=== PATIENT | female | born 1980 | race Caucasian/White ===

== ENCOUNTER → 2020-11-16 16:16 | Outpatient (CLI) | payer BC, SELFPAY ==
--- NOTE | ~2020-11-16 | XR_ITS ---
EXAMINATION: XR scapula LT INDICATION: Left scapular pain TECHNIQUE: Two views of the left scapula are obtained. COMPARISON: None available FINDINGS: Bone alignment is normal. There is no fracture. The soft tissues are unremarkable. IMPRESSION: 1. No acute osseous abnormality. Reviewed, dictated and finalized at location A. 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
--- NOTE | ~2020-11-16 | XR_ITS ---
EXAMINATION: XR chest 2V DATE: 11/16/2020 17:06 INDICATION: Left chest pain TECHNIQUE: PA and lateral views of the chest are obtained. COMPARISON: 09/03/2019 FINDINGS: The lungs are free of acute opacities. There is no pleural effusion or pneumothorax. The ca rdiomediastinal silhouette is normal. The visualized bones and soft tissues are unremarkable. IMPRESSION: 1. No acute cardiopulmonary abnormality. Reviewed, dictated and finalized at location A. RAL HOME LOCATION MANAGER
--- NOTE | ~2020-11-16 | MM_ITS ---
EXAMINATION: MM screening jay BI w jerri HISTORY: Screening TECHNIQUE: Craniocaudal and mediolateral oblique 3-D tomosynthesis images were obtained and synthetic 2-D images were generated. CAD analysis was submitted and interpreted. COMPARISON: No prior mammogram is available for comparison at this institution. BREAST PARENCHYMAL COMPOSITION: There are scattered areas of fibroglandular density. FINDINGS: There is a small 3 mm mass lower inner quadrant of the left breast, anterior third. There a re no suspicious masses, calcifications or architectural distortion in the right breast to suggest ma lignancy. IMPRESSION: 1. Left breast mass, lower inner quadrant anteriorly measuring 3 mm. 2. Additional mammographic views and possible breast ultrasound are recommended. BI-RADS Category 0: Incomplete: Needs additional imaging evaluation. Reviewed, dictated and finalized at location A. ERY SUPERVISOR IMPRESSION: 1. Left breast mass, lower inner quadrant anteriorly measuring 3 mm. 2. Additional mammographic views and possible breast ultrasound are recommended . BI-RADS Category 0: Incomplete: Needs additional imaging evaluation.
== END ==
PROVIDERS: PCP Internal Medicine; Visit Provider Internal Medicine
DX: Z12.31 Encounter for screening mammogram for malignant neoplasm of breast (principal); M25.512 Pain in left shoulder; R92.8 Other abnormal and inconclusive findings on diagnostic imaging of breast
CPT/HCPCS: 71046; 73010; 77063; 77067

== ENCOUNTER → 2020-12-15 09:25 | Outpatient (CLI) | payer BC, SELFPAY ==
--- NOTE | ~2020-12-15 | MMUS_ITS ---
EXAMINATION: MM diagnostic mammo unilat LT, US breast LT limited HISTORY: Left breast mass on baseline screening mammogram TECHNIQUE: Additional 3-D tomosynthesis images of the left breast were performed and synthetic 2-D im ages were generated. CAD analysis was submitted and interpreted. High resolution limited left breast ultrasound was performed. COMPARISON: 11/16/2020 FINDINGS: MAMMOGRAPHIC FINDINGS: There is a 4 mm oval, circumscribed, equal density mass in the anterior third of the slightly inner b reast at the 7:00 location 3 cm from the nipple. ULTRASOUND: There is a 3 mm oval, circumscribed, parallel, hypoechoic mass with no posterior features or internal vascularity at the 7:00 location 2 cm from the nipple. IMPRESSION: 1. Probably benign left breast mass. 2. Recommend 6 month follow-up left diagnostic mammogram and ultrasound. BI-RADS category 3, probably benign findings. Reviewed, dictated and finalized at location A. IMPRESSION: 1. Probably benign left breast mass. 2. Recommend 6 month follow-up left diagnostic mammogram and ultrasound. BI-RADS category 3, probably benign findings.
== END ==
PROVIDERS: PCP Internal Medicine; Visit Provider Internal Medicine
DX: R92.8 Other abnormal and inconclusive findings on diagnostic imaging of breast (principal)
CPT/HCPCS: 76642; 77065

== ENCOUNTER → 2020-12-18 12:38 | Outpatient (CLI) | payer BC, SELFPAY ==
--- NOTE | ~2020-12-18 | CT_ITS ---
EXAMINATION: CT abdomen pelvis wo con DATE: 12/18/2020 13:03 INDICATION: Nephrolithiasis presenting with right lower quadrant abdominal pain and hematuria. TECHNIQUE: Computed tomography (CT) of the abdomen and pelvis was performed without intravenous contr ast. Automated exposure control and iterative reconstruction technique were employed. The dose-length product was 640.95 mGy-cm. COMPARISON: 08/18/2018 FINDINGS: Lung bases are clear. Heart size is normal. No pericardial or pleural effusion. There are few calcifi ed gallstones in the fundus of the normal-appearing gallbladder. Liver, spleen, pancreas and bilatera l adrenal glands are normal. 1-2 mm stone at the right ureterovesicular junction without hydronephros is. Additional 1 mm stone at the lower pole of the right kidney. No right-sided urolithiasis. No hydr onephrosis. A few phleboliths in the pelvis. Bladder is normal. 1.8 cm right adnexal cyst. Anteverted uterus and left adnexa are unremarkable. Bowels including the appendix are normal. Very small fat-co ntaining umbilical hernia. No free intraperitoneal gas or fluid. No pathologically enlarged abdominal or pelvic lymphadenopathy. Prominent bone island at the posterior medial left acetabulum. IMPRESSION: 1. Right nephrolithiasis with 1-2 mm nonobstructing stone at the right ureterovesicular junction with no hydroureteronephrosis. 2. Cholelithiasis. Reviewed, dictated and finalized at location B. IMPRESSION: 1. Right nephrolithiasis with 1-2 mm nonobstructing stone at the right ureterov esicular junction with no hydroureteronephrosis. 2. Cholelithiasis.
== END ==
PROVIDERS: PCP Internal Medicine; Visit Provider Internal Medicine
DX: R10.31 Right lower quadrant pain (principal); R31.9 Hematuria, unspecified; N20.0 Calculus of kidney; K80.20 Calculus of gallbladder without cholecystitis without obstruction
CPT/HCPCS: 74176

== ENCOUNTER → 2021-11-20 09:47 | Outpatient (CLI) | payer OTHER, SELFPAY ==
--- NOTE | ~2021-11-20 | MMUS_ITS ---
EXAMINATION: MM diagnostic jay BI w jerri, US breast LT limited HISTORY: Follow-up left breast mass TECHNIQUE: Additional 3-D tomosynthesis images of the breasts were performed and synthetic 2-D images were generated. CAD analysis was submitted and interpreted. High resolution Limited left breast ultr asound was performed. COMPARISON: Comparison to multiple prior studies sequentially, with oldest reviewed study dated 12/2020. BREAST PARENCHYMAL COMPOSITION: Breast composed of scattered areas of fibroglandular density. FINDINGS: MAMMOGRAPHIC FINDINGS: There are no suspicious masses, calcifications or architectural distortion in either breast to sugges t malignancy. Decreased size of small mass in the lower inner quadrant of the left breast compared wi th prior examination. ULTRASOUND: Limited left breast ultrasound: At 7:00, 2 cm from the nipple, decreased size to 2 mm complicated cys t compared with prior examination. No suspicious masses or cyst to suggest malignancy. IMPRESSION: 1. Diminished size of complicated cyst compared with prior examination which has a benign appearance. No evidence for malignancy in either breast. 2. Routine yearly screening mammogram and regular clinical breast examination are recommended. BI-RADS Category 2: Benign finding(s). Reviewed, dictated and finalized at location A. 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 Diminished size of complicated cyst compared with prior examination which bradley s a benign appearance. No evidence for malignancy in either breast. 2. Routine yearly screening mammogram and regular clinical breast examination a re recommended. BI-RADS Category 2: Benign finding(s).
== END ==
PROVIDERS: PCP Internal Medicine; Visit Provider Internal Medicine
DX: R92.8 Other abnormal and inconclusive findings on diagnostic imaging of breast (principal)
CPT/HCPCS: 76642; 77062; 77066; G0279

== ENCOUNTER 2022-08-06 11:32 | Outpatient (CLI) | payer OTHER, SELFPAY ==
[2022-08-06 12:49] LABS: Influenza Control Valid (Valid)
== END 2022-08-06 11:33 | disposition home or self-care (01) ==
LOC: CHSLAB 11:37
PROVIDERS: PCP Internal Medicine; Visit Provider Internal Medicine
DX: J06.9 Acute upper respiratory infection, unspecified (principal)
CPT/HCPCS: 87804

== ENCOUNTER 2023-05-13 11:26 | Emergency (ER) | payer OTHER, SELFPAY ==
[2023-05-13] VITALS (8 sets, daily range): BP systolic 103–152; BP diastolic 83–118; PULSE 58–70; RESP 17–18; TEMP 36.2–36.6; O2SAT 96–100
--- NOTE | ~2023-05-13 | US_ITS ---
US right upper quadrant DATE: 05/13/2023 12:13 INDICATION: Right upper quadrant abdominal pain. History of gallstones. TECHNIQUE: Real-time imaging and Doppler analysis at right upper quadrant COMPARISON: December 18, 2020 CT abdomen pelvis FINDINGS: Normal hepatopedal portal venous flow direction. No hepatic or pancreatic space-occupying m ass lesion is detected. There are multiple gallstones including 2 up to approximately 11 x 17 mm stones fixed in position at the neck of the gallbladder. No gallbladder wall thickening is noted. No abnormal pericholecystic flu id collection. Positive sonographic Sandra's sign. Common bile duct measures 6 mm, borderline. IMPRESSION: Cholelithiasis Positive sonographic Sandra's sign and fixed stones at gallbladder neck, suggesting possibility of ac matthew cholecystitis Borderline 6 mm diameter of common bile duct Reviewed, dictated and finalized at Location A. Reviewed, dictated and finalized at location L. IMPRESSION: Cholelithiasis Positive sonographic Sandra's sign and fixed stones at gallbladder neck, sugges ting possibility of acute cholecystitis Borderline 6 mm diameter of common bile duct
--- NOTE | 2023-05-13 11:29 | ED.ABDPAIN ---
HPI - Abdominal Pain General Chief Complaint: Abdominal Pain Stated Complaint: abdominal pain Time Seen by Provider: 05/13/23 11:29 Source: patient and RN notes reviewed Mode of arrival: ambulatory Limitations: no limitations History of Present Illness MD elicited complaint: abdominal pain Pertinent past history: none Onset (ago): hour(s) (2.5) Pain Consistency: constant Location: RUQ Severity: moderate Quality: stabbing and sharp Radiation: none Migration to: no migration Exacerbating factors: eating Relieving factors: nothing Associated symptoms: denies other symptoms Related Data Home Medications Medication Instructions Recorded Confirmed No Home Medications 05/13/23 05/13/23 Allergies Allergy/AdvReac Type Severity Reaction Status Date / Time cefadroxil Allergy Unknown NAUSEA AND Verified 05/13/23 11:32 VOMITING PMFSH Past Medical History Medical History (Updated 05/13/23 @ 12:37 by Spenser Hanson MD) No active medical problems Surgical History Surgical History (Updated 05/13/23 @ 11:37 by Spenser Hanson MD) History of section x2 Exam Const: General: no acute distress, alert and ill appearing acutely Nutritional Appearance: well nourished and obese Orientation/consciousness: patient oriented x3 Limitations: no limitations Other: female tech in room during examination. HENMT: Head: normal to inspection Ears: external ears normal Face/Nose/Sinus: Normal external nose present Face and sinus: normal facial exam Mouth: Yes moist mucous membranes Eyes: Conjunctivae: conjunctivae normal Pupils: Equal, round and reactive pupils present EOM: EOMs intact bilaterally Neck: Neck: normal visual inspection Resp: Effort & Inspection: normal respiratory effort Auscultation: clear to auscultation bilaterally Cardio: Rate: regular rate Rhythm: regular rhythm GI: GI Palp: Yes Soft to palpation, Yes Tenderness to palpation present (GI) ( Severe right upper quadrant positive Sandra sign), Yes Guarding due to palpation present (GI) ( moderate RUQ) and No Rebound tenderness present Auscultation: normal bowel sounds Back/Spine/Pelvis: Cervical Spine: cervical ROM normal Thoracic/Lumbar Spine: thoraco-lumbar ROM normal Skin: General skin exam: normal color Rashes: no rashes Neuro: General: patient oriented x3, moves all extremities, no focal motor deficits and CN's II-XI intact bilaterally Speech: normal speech Gait exam (Neuro): Normal gait present Extrem: General: normal to inspection and no clubbing, cyanosis or edema Psych: Mental Status: mental status grossly normal Affect: normal affect Attitude: cooperative Course Course Emergency Course: patient given Bentyl which did not really help with her pain. She also asked for some Zofran and then helped with her nausea. Patient was offered IV and IV Dilaudid which she refused because she wants to go by private vehicle to [facility]. Consultations Consultation #1: Dr. Smith accepted the patient for transfer to [facility]. Date: 05/13/23 Vital Signs Vital signs: Vital Signs Temperature 36.2 C L 05/13/23 11:26 Pulse Rate 70 05/13/23 11:26 Respiratory Rate 18 05/13/23 11:26 Blood Pressure 139/107 H 05/13/23 11:26 Pulse Oximetry 96 05/13/23 11:26 Oxygen Delivery Room Air 05/13/23 11:26 Temperature 36.2 C L 05/13/23 11:26 Pulse Rate 65 05/13/23 11:45 Respiratory Rate 18 05/13/23 11:45 Blood Pressure 152/93 H 05/13/23 11:45 Pulse Oximetry 98 05/13/23 11:45 Oxygen Delivery Room Air 05/13/23 11:45 Transfer Transfered to: [facility] Transfer rationale: Surgical specialty Accepting physician: Dr. Smith MDM - Abdominal Pain Differential Diagnosis Differential diagnosis: Likely abdominal pain, acute appendicitis, constipation, diverticulitis, small bowel obstruction and other ( cholelithiasis cholecystitis) Lab Data Attestation: I reviewed the marian
[2023-05-13 11:49] LABS: Basophils Absolute Auto 0.05 K/mm3 (0.00-0.10); Basophils Percent Auto 0.5 % (0.0-1.0); Eosinophils Absolute Auto 0.11 K/mm3 (0.02-0.50); Hematocrit 43.1 % (35.0-49.0); Hemoglobin 14.4 g/dL (12.0-15.0); Immature Granulocyte Absolute 0.03 K/mm3 (0.00-0.00); Immature Granulocyte Percent A 0.3 % (0.0-0.0); Lymphocytes Absolute Auto 2.48 K/mm3 (1.10-4.50); Lymphocytes Percent Auto 22.4 % (18.0-42.0); Mean Corpuscular HGB Conc 33.4 g/dL (32.0-36.0); Mean Corpuscular Hemoglobin 32.1 pg (27.0-31.0); Mean Platelet Volume 10.3 fl (9.2-11.8); Monocytes Absolute Auto 0.63 K/mm3 (0.10-0.90); Monocytes Percent Auto 5.7 % (2.0-11.0); Neutrophils Absolute Auto 7.8 K/mm3 (1.7-7.2); Neutrophils Percent Auto 70.1 % (50.0-70.0); Platelet Count Result 288 K/mm3 (150-420); Red Blood Count 4.49 M/mm3 (4.20-5.40); Red Cell Distribution Width 12.6 % (11.6-14.4); White Blood Count 11.1 K/mm3 (4.8-10.8)
[2023-05-13 12:00] LABS: CRP 1.1 mg/dL (0.0-0.9)
[2023-05-13 12:05] LABS: Alanine Aminotransferase 19 U/L (14-59); Albumin Level 3.4 g/dL (3.4-5.0); Anion Gap 7 mmol/L (8-16); Aspartate Amino Transferase 13 U/L (15-37); Bilirubin,Total 0.2 mg/dL (0.00-1.00); Blood Urea Nitrogen 13 mg/dL (7-18); Calcium 8.7 mg/dL (8.5-10.1); Carbon Dioxide 27 mmol/L (21-32); Chloride 105 mmol/L (98-108); Estimated CRCL calculation 83 ml/min; Estimated Glomerular Filt Rate > 60; Glucose 107 mg/dL (70-99); Osmolality Calculated 288 mOsm/kg (285-295); Potassium 3.8 mmol/L (3.5-5.1); Sodium 139 mmol/L (136-145)
[2023-05-13 12:06] LABS: Alkaline Phosphatase 86 U/L (46-116); Amylase 44 U/L (25-115); Lipase 56 U/L (16-77)
[2023-05-13] MEDS: ONDANSETRON HCL ODT 4 MG TABLET PO ×2 (12:10→13:48)
[2023-05-13] MEDS: DICYCLOMINE HCL INJ 20 MG/2 ML VIAL IM (12:11)
--- NOTE | 2023-05-13 12:51 | PC.NURSE ---
RN went down to give patient Dilaudid and start IV, patient states that she does not want IV because she wants to transfer VIA POV. patient informed that i may be some time before surgeon calls back and that she cannot have Dilaudid and go POV for transfer. she understands and verbalized she does not want pain medication or IV at this time.
== END 2023-05-13 13:52 | disposition short-term general hospital (02) ==
PROVIDERS: Emergency Provider Emergency Medicine; PCP Internal Medicine
DX: K81.0 Acute cholecystitis (principal)
CPT/HCPCS: 36415; 76705; 80053; 82150; 83605; 83690; 85025; 86140; 96372; 99284; A9270; J0500

== ENCOUNTER 2023-05-13 15:15 | Observation (INO) | payer OTHER, SELFPAY ==
--- NOTE | 2023-05-13 15:39 | PM.IMHP ---
H&P: HPI History of Present Illness Date/Time: 05/13/23 15:39 Chief Complaint: RUQ abdominal pain Narrative: This is a 43 year old woman who came into [place] ER today with RUQ abdominal pain. She had Ramen noodles this morning around 8:00 am and about 30 minutes after had a sudden onset of RUQ abdominal pain. Her pain radiates across her upper abdomen and into her mid back. She has associated nausea and vomiting. In [place], labs showed WBC count 11,100 and normal LFTs. RUQ US showed positive Sandra's sign and fixed stones in the neck of the gallbladder with borderline 6 mm diameter of common bile duct. She was directly admitted to [facility] for surgical evaluation. She is now seen on the medical floor. Review of Systems Review of Systems: All systems reviewed & are unremarkable except as noted in HPI and below Constitutional: Constitutional: Reports no additional constitutional complaints, Denies chills, Denies fatigue and Denies fever(s) Eyes: Eyes: Reports no additional eye complaints ENT: Reports system reviewed and no additional complaints, except as documented and Denies dizziness Cardiovascular: Cardiovascular: Reports no additional cardiovascular complaints, Denies chest pain and Denies leg edema Respiratory: Respiratory: Reports no additional respiratory complaints, Denies cough and Denies dyspnea Gastrointestinal: Gastrointestinal: Reports as per HPI, Reports no additional gastrointestinal complaints, Reports abdominal pain, Denies melena, Denies hematochezia, Denies constipation, Denies diarrhea, Reports nausea and Reports vomiting Genitourinary: Genitourinary: Reports no additional female genitourinary complaints and Denies dysuria Musculoskeletal: Musculoskeletal: Reports no additional musculoskeletal complaints, Denies abnormal gait and Denies joint swelling Integumentary/Breasts: Skin/Breast: Reports system reviewed and no additional complaints, except as docu and Denies jaundice Neurologic: Reports system reviewed and no additional complaints, except as documented, Denies headache(s), Denies focal weakness, Denies numbness and Denies tingling PMFSH Past Medical History Medical History No active medical problems Surgical History Surgical History History of section x2 Social History Social History Living arrangements: with family 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 Home Medications and Allergies Home Medications Medication Instructions Recorded Confirmed Type No Home Medications 05/13/23 05/13/23 History Allergies Allergy/AdvReac Type Severity Reaction Status Date / Time cefadroxil Allergy Unknown NAUSEA AND Verified 05/13/23 11:32 VOMITING Exam Const: General: no acute distress, awake and uncomfortable Nutritional Appearance: overweight Orientation/consciousness: patient oriented x3 HENMT: Head: normocephalic and atraumatic Ears: hearing grossly normal bilaterally Mouth: Yes moist mucous membranes Eyes: General: appearance normal, both eyes and all related structures Pupils: Equal, round and reactive pupils present EOM: EOMs intact bilaterally Neck: Neck: normal visual inspection and full ROM Resp: Effort & Inspection: no respiratory distress Auscultation: clear to auscultation bilaterally Cardio: Rate: regular rate Rhythm: regular rhythm Heart sounds: S1 normal heart sound present and S2 normal heart sound present Peripheral pulses: Peripheral pulses 2+ throughout GI: Inspection: non-distended GI Palp: Yes Soft to palpation, Yes Tenderness to palpation present (GI) (epigastric and RUQ, most focally in RUQ), Yes Guarding due to palpation present (GI) (RUQ), Yes No hepatosplenomegaly present and No Rebound tenderness present Auscultation: normal bow
[2023-05-13] MEDS: MORPHINE SULFATE (*CRX) 2 MG/ML INJ IV PUSH ×3 (15:40→21:25)
[2023-05-13] MEDS: LACTATED RINGERS 1,000 ML 100 ML IV CONT (15:42)
[2023-05-13] MEDS: ONDANSETRON INJ 4 MG/2 ML VIAL IV PUSH (15:46)
[2023-05-13 15:49] VITALS: BP 137/80; PULSE 53; RESP 14; TEMP 35.7; O2SAT 100
[2023-05-13 15:59] VITALS: BMI 38.3
--- NOTE | 2023-05-13 16:07 | ADMGEN ---
This patient, Ameena Mcfarland, was admitted to [facility] Surg Room 312-01. Patient/family oriented to hospital policies and general routines including ID bracelet, bed and alarms, visiting hours, pain management, procedures, bathroom and other care routines, personal items, smoking policy, room service/diet, and visiting hours. Information on how to activate the Rapid Response Team has been discussed. Patient/Family are encouraged to report perceived risks to care and to ask questions if they do not understand what they are told or what they should do. Direct admit from [facility].
[2023-05-13 20:50] VITALS: O2SAT 96
[2023-05-13 21:15] VITALS: BP 118/78; PULSE 54; RESP 18; TEMP 35.6; O2SAT 96
[2023-05-14] VITALS (13 sets, daily range): BP systolic 105–131; BP diastolic 57–78; PULSE 52–78; RESP 14–19; TEMP 35.6–36.5; O2SAT 93–100
[2023-05-14] MEDS: MORPHINE SULFATE (*CRX) 2 MG/ML INJ IV PUSH ×2 (02:14→06:30)
[2023-05-14] MEDS: LACTATED RINGERS 1,000 ML 100 ML IV CONT (02:16)
[2023-05-14 06:54] LABS: Hematocrit 42.2 % (37.0-47.0); Mean Corpuscular HGB Conc 33.2 g/dl (32-36); Mean Corpuscular Hemoglobin 31.9 pg (26-34); Mean Corpuscular Volume 96.1 fl (80-100); Mean Platelet Volume 9.8 fl (7.4-10.4); Platelet Count Result 281 k/mm3 (150-375); Red Blood Count 4.39 M/mm3 (4.2-5.4); Red Cell Distribution Width 12.9 % (11.5-14.5); White Blood Count 13.1 K/mm3 (4.5-10.0)
[2023-05-14 07:10] LABS: Alanine Aminotransferase 21 U/L (6-35); Albumin Level 3.7 g/dL (3.5-5.1); Alkaline Phosphatase 73 U/L (38-126); Anion Gap 6 mmol/L (8-16); Aspartate Amino Transferase 23 U/L (14-36); Bilirubin,Total 0.6 mg/dL (0.2-1.3); Blood Urea Nitrogen 9 mg/dL (7-17); Calcium 8.7 mg/dL (8.4-10.2); Carbon Dioxide 27 mmol/L (22-30); Chloride 106 mmol/L (98-107); Estimated CRCL calculation 96 ml/min; Estimated Glomerular Filt Rate > 60; Glucose 100 mg/dL (65-110); Lipase 106 U/L (23-300); Potassium 3.9 mmol/L (3.4-5.0); Sodium 139 mmol/L (137-145)
--- NOTE | 2023-05-14 07:14 | WPDHPUPDATE1 ---
History and Physical Update Update Date/Time: 05/14/23 07:14 History and Physical has been reviewed, including an updated exam of the patient. There are NO changes in the patient's condition. Risks, benefits, and alternatives have been discussed and questions answered. Patient agrees to proceed with procedure.
[2023-05-14] MEDS: ONDANSETRON INJ 4 MG/2 ML VIAL IV PUSH ×2 (07:55→13:38)
--- NOTE | 2023-05-14 08:46 | WPDANESEPPF ---
Anes - Initial Pre Proc Eval Procedure: Operation Date: 05/14/23 09:30 Proposed Procedures p Laparoscopic Cholecystectomy, Possible Open - Charly Smith DO Date/Time: 05/14/23 08:46 Surgeon: Charly Smith DO Pre Op Diagnosis: Acute Cholecystitis Patient Data Age: 43 Gender: F Height: 1.57 m Weight: 95.1 kg Last Vital Signs Temp 36.1 C L 05/14/23 06:00 Pulse 65 05/14/23 06:00 Resp 16 05/14/23 06:00 BP 109/57 L 05/14/23 06:00 Pulse Ox 98 05/14/23 06:00 O2 Del Method Room Air 05/13/23 20:50 Allergies Allergy/AdvReac Type Severity Reaction Status Date / Time cefadroxil Allergy Unknown NAUSEA AND Verified 05/13/23 16:19 VOMITING Home Medications Medication Instructions Recorded Confirmed Type No Home Medications 05/13/23 05/13/23 History Laboratory Tests 05/14/23 06:47 WBC 13.1 H K/mm3 (4.5-10.0) RBC 4.39 M/mm3 (4.2-5.4) Hgb 14.0 g/dL (12.0-15.0) Hct 42.2 % (37.0-47.0) MCV 96.1 fl (80-100) MCH 31.9 pg (26-34) MCHC 33.2 g/dl (32-36) RDW 12.9 % (11.5-14.5) Plt Count 281 k/mm3 (150-375) MPV 9.8 fl (7.4-10.4) Sodium 139 mmol/L (137-145) Potassium 3.9 mmol/L (3.4-5.0) Chloride 106 mmol/L (98-107) Carbon Dioxide 27 mmol/L (22-30) Anion Gap 6 L mmol/L (8-16) BUN 9 mg/dL (7-17) Creatinine 0.70 mg/dL (0.7-1.0) Estim Creat Clear Calc 96 ml/min Estimated GFR > 60 (59 - ) Glucose 100 mg/dL (65-110) Calcium 8.7 mg/dL (8.4-10.2) Total Bilirubin 0.6 mg/dL (0.2-1.3) AST 23 U/L (14-36) ALT 21 U/L (6-35) Alkaline Phosphatase 73 U/L (38-126) Total Protein 7.0 g/dL (6.3-8.2) Albumin 3.7 g/dL (3.5-5.1) Lipase 106 U/L (23-300) Patient hx anesthesia problems: none Family hx anesthesia problems: none Results Review: All pre-operative results and documents have been reviewed as part of the pre-operative evaluation. [facility] Past Medical History Medical History No active medical problems Surgical History Surgical History History of section x2 Social History Social History (Updated 05/14/23 @ 08:56 by Hector Antoine, ) Smoking packs per day: 1 Smoking cigarettes per day: 20.0 Smoking status: Current every day smoker Alcohol intake: current Drinks per week: 1 Substance use: former Substance use type: marijuana Last use: 02/10/23 Lack of Transportation: No Lack of Food: Never True Current Housing: I Have Housing Concerned About Future Housing: No Difficulty Paying Gas/Electric Bills: No Difficulty Paying for Meds: No Currently Unemployed: No Education: High School Diploma/GED Difficulty w/ Childcare or Family Care: No Living arrangements: with family 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 Informed Consent: The patient's anesthetic plan and its attendant risks and benefits were discussed with the patient/family/POA. Questions were solicited and answers provided to the satisfaction of the patient/family/POA.
[2023-05-14 08:59] LABS: SPREG INTERNAL CONTROL Positive; Serum Qual hCG Negative
[2023-05-14] MEDS: ceFAZolin 2 GM/D5W 50 ML 2 GM/50 ML BAG IVPB (09:30)
[2023-05-14] MEDS: BUPIVACAINE/EPINEPHRINE 0.5% 50 ML VIAL 30 ML INFILTRATE (09:33)
[2023-05-14] MEDS: LACTATED RINGERS 1,000 ML 30 ML IV CONT ×2 (10:04→10:22)
--- NOTE | 2023-05-14 10:14 | W.PM.PROC2 ---
Procedure Note - Detailed Date of Procedure 05/14/23 Pre-op Diagnosis Acute Cholecystitis Post-op Diagnosis Same Procedure Performed Laparoscopic cholecystectomy Surgeon Charly Smith, DO Anesthesia General and Local (0.5% bupivacaine) Indications This is a 43-year-old woman who presented to [facility] with right upper quadrant pain with nausea and vomiting. She was found to have evidence of acute calculous cholecystitis on ultrasound and her white blood count was slightly elevated. She was transferred to [facility] for further treatment. Discussions were made with the patient about treatment options and decision was made to proceed with laparoscopic cholecystectomy, possible open. Findings Laparoscopic cholecystectomy was performed. The gallbladder was edematous and dilated. The cystic duct appeared normal in size. There were several medium-sized stones within the gallbladder. The gallbladder was removed and sent to the lab for pathology. Description of Procedure Procedure as well as risks, benefits, and alternatives were discussed with patient. Written consent was obtained and placed in chart prior to procedure. The patient was brought back to surgical suite. Patient was placed in supine position on operating table. Time-out was done to confirm patient and procedure. Patient was then intubated by the anesthesia department. Abdomen was prepped and draped in sterile fashion using chlorhexidine prep. 0.5% bupivacaine with epinephrine was infiltrated at each site of incision. A 5 millimeter incision was made near the umbilicus, and a 5 millimeter Optiview trocar was advanced through the abdominal layers under direct visualization. Once inside the abdominal cavity, carbon dioxide was insufflated to create a pneumoperitoneum. The camera was inserted and the abdomen was inspected. No immediate abnormalities were identified. The patient was placed in reverse Trendelenburg position and rotated slightly to the left. An 11 millimeter incision was made in the subxiphoid region, and an 11 millimeter trocar was inserted under direct visualization. Two 5 millimeter incisions were made in the right upper quadrant, and two 5 millimeter trocars were inserted under direct visualization. The gallbladder was identified and grasped at the fundus and retracted superiorly. It was then grasped at the infundibulum retracted laterally. Careful dissection around the neck of the gallbladder was performed using blunt dissection with a [place] grasper and hook electrocautery. The cystic duct was identified, and a window was created behind it. The cystic artery was also identified and a window was created behind it. The critical view of safety was identified, visualizing the cystic duct running directly into the neck of the gallbladder, and the cystic artery running directly into the wall of the gallbladder. A 5 millimeter clip fashion illustrator was then used to place 2 clips proximally and 1 clip distally on both the cystic duct and cystic artery. They were then both transected using endoscopic scissors. Once safely away from the kaila hepatitis, the gallbladder was dissected free from the liver bed using hook electrocautery. Hemostasis was achieved along the way. The gallbladder was removed completely and then removed through the subxiphoid port. The liver bed was then inspected. Hemostasis appeared adequate, and our clips appeared secure. The area was gently irrigated with sterile saline. No other abnormalities were seen. The patient was flattened out in bed, and 1 final inspection was made around the abdominal cavity. The subxiphoid port was removed, and a Elmo Radha cone was used to approximate the fascia with an 0-Vicryl simple interrupted suture. The remaining ports were then removed under direct visualization, the camera was removed, and the pneumoperitoneum was released. The skin of the incisions was approximated using 4-0 Monocryl s
[2023-05-14] MEDS: fentaNYL CITRATE INJ (*CRX) 100 MCG/2 ML VIAL 25 MCG IV PUSH ×8 (10:18→11:13)
--- NOTE | 2023-05-14 10:20 | PM.DS ---
DS: Admitting Diagnosis Discharge Date 05/14/2023 Admitting Diagnosis Acute calculous cholecystitis DS: Discharge Diagnosis Discharge Diagnosis (1) Acute calculous cholecystitis: Code(s): K80.00 - Calculus of gallbladder with acute cholecystitis without obstruction Status: Acute DS: Summary Hospital Course Reason for hospitalization: Acute calculous cholecystitis Hospital Course: This is a 43-year-old woman who presented to [facility] emergency department for right upper quadrant pain and nausea and vomiting that started yesterday morning. She was found to have evidence of acute calculous cholecystitis on ultrasound and was noted to have a slightly elevated white blood count. She was continuing to have persistent pain. She was transferred to [facility] for further treatment. She underwent laparoscopic cholecystectomy on 05/14/2023. Surgery was uncomplicated and she was returned to the surgical floor postoperatively. Diet and activity were advanced as tolerated. She was discharged home once she was tolerating a low-fat diet, vitals remained stable, her pain was controlled, and she was ambulating in the halls. Time spent discussing smoking cessation with patient: 3 to 10 minutes Status at Discharge Functional status at discharge: independent ambulation Overall status at discharge: patient is progressing back to baseline Time Spent with Patient Time attestation: Total time spent providing and/or coordinating discharge services: Exam GI: Inspection: non-distended and incision (Intact with glue) DS: Data Data Completed and Pending Pending studies at discharge: Pending at discharge 05/14/23 09:34 Surgical [PTH] Routine Labs on day of discharge: Labs from last 24 hours 05/14/23 06:47 WBC 13.1 H RBC 4.39 Hgb 14.0 Hct 42.2 MCV 96.1 MCH 31.9 MCHC 33.2 RDW 12.9 Plt Count 281 MPV 9.8 Sodium 139 Potassium 3.9 Chloride 106 Carbon Dioxide 27 Anion Gap 6 L BUN 9 Creatinine 0.70 Estim Creat Clear Calc 96 Estimated GFR > 60 Glucose 100 Calcium 8.7 Total Bilirubin 0.6 AST 23 ALT 21 Alkaline Phosphatase 73 Total Protein 7.0 Albumin 3.7 Lipase 106 Serum HCG, Qual Negative Discharge Plan Discharge Attending physician on discharge: Charly Marshall Discharging Clinician: Charly Marshall Patient Disposition: Home, Self-Care Activity: other - see discharge instructions Diet: low fat Wound Care Instructions: other - see discharge instructions Discharge Instructions: DISCHARGE INSTRUCTION SHEET FOR HERNIA, GALLBLADDER AND APPENDIX SURGERIES DR. MARSHALL PATIENT TO TAKE HOME 1. May shower in 24 hours, no soaking in bath x 2weeks. 2. Call office for: Wound increasingly painful or bleeding Vomiting Fever of greater than 101 degrees 3. If no bowel movement for three days, take 1 oz. (30 ml) Milk of Magnesia or MiraLax 17g 1 to 2 times daily. 4. No heavy lifting > 10-15 pounds x weeks for hernia repairs and 2 weeks for laparoscopic cholecystectomy or appendectomy. 5. No driving for 3 days or while taking narcotic pain medications. 6. Ice to surgical site for 48 hours (30 min on, then 30 min off). 7. Up walking 10-30 minutes three times per day. 8. Resume previous home medications. 9. Follow-up 10-14 days in office for wound check or as previously scheduled. ([phone]) 10. Oral pain medications prescription to be sent to pharmacy. Take Tylenol 500mg every 6 hours and Ibuprofen 600mg every 6 hours for the first 2 days, then as needed. 11. NUTRITION: Start out by drinking fluids and increase your diet as tolerated. If you experience nausea, try dry toast, crackers, and 7-UP. If nausea or vomiting persists, contact your surgeon?s office. 12. Gallbladders-Low Fat Diet for 2 weeks (send care note of low fat diet) 13. Inguinal Hernias-wear scrota
[2023-05-14] MEDS: IBUPROFEN 400 MG TABLET PO (15:13)
== END 2023-05-14 18:35 | disposition home or self-care (01) ==
PROVIDERS: Anesthesiology; Admitting Provider Surgery; PCP Internal Medicine; Visit Provider Surgery
PROC: 0FT44ZZ Resection of Gallbladder, Percutaneous Endoscopic Approach (ICD-10-PCS; CPT 47562; principal; 2023-05-14 09:30)
DX: K80.00 Calculus of gallbladder with acute cholecystitis without obstruction (principal); D72.829 Elevated white blood cell count, unspecified; E66.3 Overweight; Z68.38 Body mass index [BMI] 38.0-38.9, adult; F17.210 Nicotine dependence, cigarettes, uncomplicated; F10.90 Alcohol use, unspecified, uncomplicated; F12.90 Cannabis use, unspecified, uncomplicated
CPT/HCPCS: 47562; 36415; 80053; 83690; 84703; 85027; 88304; 96360; 96361; 96374; 96375; A9270; G0378; G0379; J0690; J1100; J2250; J2270; J2405; J2704; J3010; J7030; J7120

== ENCOUNTER 2025-01-31 14:40 | Outpatient (RCR) | payer OTHER, SELFPAY ==
--- NOTE | 2025-01-31 15:59 | OPREHPOC ---
Outpatient Therapy Plan of Care This is a Multidisciplinary Plan of Care that may contain components documented by all disciplines (PT, OT, and ST.) PT Problem 1 PT Problem #1 Knowledge Deficit PT Goal 1 Goal / Goal Update Independent and compliant with HEP. Target Visit 4 PT Problem 2 PT Problem #2 Pain PT Goal 1 Goal / Goal Update Pt to report no more than 3/10 neck/shoulder pain at rest. Pt to report no more than 5/10 neck/shoulder pain with activity. Target Visit 9 PT Problem 3 PT Problem #3 Impaired Strength PT Goal 1 Goal / Goal Update Pt to improve gross cervical mm strength to 5/5 without pain. Pt to improve gross R shoulder strength to 5/5 with no more than 5/10 pain with resistive testing . Target Visit 9 PT Problem 4 PT Problem #4 Impaired Functional Mobility PT Goal 1 Goal / Goal Update Pt to report 20% improvement on neck index. Pt to report 20% improvement on quick dash. Pt to report sleeping through the night for the last 3 nights without being awoken due to neck/ shoulder pain. Target Visit 9
--- NOTE | 2025-01-31 15:59 | PTOPEVAL1 ---
Assessment and note entered by Linda Rene, PT Evaluation Information Assessment Status Evaluation ICD-10 Condition Codes (PT) Pain in right shoulder M25.511 Other ICD-10 Condition Codes ( M54.2 PT) Onset 01/10/25 Subjective Information Pt reports onset of R neck and shoulder pain 3 weeks ago. She reports she went to bed feeling normal and then woke up the next day in pain. Her shoulder pain is sharp and shooting and she notes numbness in the R thumb but reports she has also felt numbness in her lateral 2 fingers. The pain is constantly present and initially went from the posterior shoulder to the elbow but now is localized to the anterior/superior shoulder. Pain radiates to the lateral arm at night and she is awoken every couple hours due to pain. She reports her neck pain is primarily in the upper trap region. 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 Reported Pain Level Pain Score 2,4: Self Report Assessment PT Clinical Summary Mrs. Mcfarland is a 44 yo female who enters the clinic with R shoulder and neck pain that occurred 3 weeks ago. Her shoulder pain is constant and sharp in nature and is reproduced with active and resisted movements of the R shoulder. Cervical tests are grossly negative for pain reproduction, however pt does exhibit impaired active cervical extension with reproduction of pain. Given the sudden onset of pt's pain she could likely be experiencing bursitis or impingement syndrome however due to significant R shoulder weakness and point tenderness, rotator cuff and labral pathologies are not excluded. She will benefit from skilled PT intervention to reduce pain, improve strength and functional use of the arm to perform daily functional tasks with less pain and difficulty. Plan of Care Interventions Electrical Stimulation,Hot Pack/Cold Pack,Manual Therapy,Neuro Re-education,Patient/Caregiver Education,Therapeutic Activities,Therapeutic Exercise,Self-Care/Home Management Other Interventions TPDN PT Services Indicated Yes Treatment Frequency and 3x/week for 9 visits Duration These treatments will address the objective and functional deficits as defined above. The patient will be advanced safely and appropriately in order for the patient to progress towards his/her prior level of function. Additional exercises will be introduced and as well as a comprehensive home exercise program upon discharge, if needed, ?to ensure carryover of functional gains achieved in the clinic. This treatment plan has been reviewed and agreement upon by the patient.
--- NOTE | 2025-02-11 14:38 | OPREHPOC ---
Outpatient Therapy Plan of Care This is a Multidisciplinary Plan of Care that may contain components documented by all disciplines (PT, OT, and ST.) PT Problem 1 PT Problem #1 Knowledge Deficit PT Goal 1 Goal / Goal Update Independent and compliant with HEP. Target Visit 4 Progress Met PT Problem 2 PT Problem #2 Pain PT Goal 1 Goal / Goal Update Pt to report no more than 3/10 neck/shoulder pain at rest. Pt to report no more than 5/10 neck/shoulder pain with activity. Target Visit 9 Progress Not Met PT Problem 3 PT Problem #3 Impaired Strength PT Goal 1 Goal / Goal Update Pt to improve gross cervical mm strength to 5/5 without pain. Pt to improve gross R shoulder strength to 5/5 with no more than 5/10 pain with resistive testing . Target Visit 9 Progress Not Met PT Problem 4 PT Problem #4 Impaired Functional Mobility PT Goal 1 Goal / Goal Update Pt to report 20% improvement on neck index. Pt to report 20% improvement on quick dash. Pt to report sleeping through the night for the last 3 nights without being awoken due to neck/ shoulder pain. -met Target Visit 9 Progress Partially Met
--- NOTE | 2025-02-11 14:38 | PTOPPROG ---
Assessment and note entered by Linda Rene, PT Evaluation Information Assessment Status Progress ICD-10 Condition Codes (PT) Pain in right shoulder M25.511 Other ICD-10 Condition Codes ( M54.2 PT) Onset 01/10/25 Subjective Information Pt reports her neck and shoulder are still hurting , however she does note a slight improvement in her active neck ROM with less pain with movement. Assessment PT Clinical Summary Mrs. Mcfarland has attended 6 skilled PT visits for R sided neck and shoulder pain. She continues to note pain with movement however it has decreased slightly and she notes a slight improvement in active neck ROM. Initiated TPDN today performed by MONICA Pugh DPT and plan to initiate cervical traction to reduce nerve compression if symptoms continue to persist. Plan of Care Interventions Electrical Stimulation,Hot Pack/Cold Pack,Manual Therapy,Mechanical Traction,Neuro Re-education, Patient/Caregiver Education,Therapeutic Activities ,Therapeutic Exercise,Self-Care/Home Management Other Interventions TPDN PT Services Indicated Yes Treatment Frequency and Continue per original POC Duration These treatments will address the objective and functional deficits as defined above. The patient will be advanced safely and appropriately in order for the patient to progress towards his/her prior level of function. Additional exercises will be introduced and as well as a comprehensive home exercise program upon discharge, if needed, ?to ensure carryover of functional gains achieved in the clinic. This treatment plan has been reviewed and agreement upon by the patient.
--- NOTE | 2025-02-21 16:17 | OPREHPOC ---
Outpatient Therapy Plan of Care This is a Multidisciplinary Plan of Care that may contain components documented by all disciplines (PT, OT, and ST.) PT Problem 1 PT Problem #1 Knowledge Deficit PT Goal 1 Goal / Goal Update Independent and compliant with HEP. Target Visit 4 Progress Met PT Problem 2 PT Problem #2 Pain PT Goal 1 Goal / Goal Update Pt to report no more than 3/10 neck/shoulder pain at rest. Pt to report no more than 5/10 neck/shoulder pain with activity. Target Visit 9 Progress Met PT Problem 3 PT Problem #3 Impaired Strength PT Goal 1 Goal / Goal Update Pt to improve gross cervical mm strength to 5/5 without pain. Pt to improve gross R shoulder strength to 5/5 with no more than 5/10 pain with resistive testing . Target Visit 9 Progress Met PT Problem 4 PT Problem #4 Impaired Functional Mobility PT Goal 1 Goal / Goal Update Pt to report 20% improvement on neck index. Pt to report 20% improvement on quick dash. Pt to report sleeping through the night for the last 3 nights without being awoken due to neck/ shoulder pain. -met Target Visit 9 Progress Met
--- NOTE | 2025-02-21 16:17 | PTOPDC ---
Assessment and note entered by Linda Rene, PT Evaluation Information Assessment Status Discharge ICD-10 Condition Codes (PT) Pain in right shoulder M25.511 Other ICD-10 Condition Codes ( M54.2 PT) Onset 01/10/25 Subjective Information Pt presents for her final skilled PT visit and reports 75-80% improvement in her neck and shoulder pain since starting PT. She is now able to sleep through the night without pain and reports her pain severity is also reduced. She has been independent with her HEP and feels capable of continuing her exercises on her own and discharging from PT this date. Reported Pain Level Pain Score 2,4: Self Report Assessment PT Clinical Summary Mrs. Mcfarland has attended 8 total skilled PT visits addressing R side neck and shoulder pain. Since beginning therapy she verbalizes feeling 80% improvement and she has made excellent progress in her cervical and shoulder mm strength. She does still experience neck and shoulder pain with movement however the pain severity is reduced and her pain no longer interferes with her sleep. She has found good benefit from PT exercises as well as manual therapy and modalities such as TPDN and cervical traction. She has met all therapeutic goals set for her and is independent with her HEP, and therefore skilled PT intervention is no longer indicated. Plan of Care PT Services Indicated No
== END 2025-02-21 16:37 | disposition home or self-care (01) ==
LOC: CHSPT 14:40
PROVIDERS: PCP Nurse Practitioner Family; Visit Provider Nurse Practitioner Family
DX: M25.511 Pain in right shoulder (principal); M54.2 Cervicalgia
CPT/HCPCS: 97012; 97110; 97112; 97140; 97161